=== PATIENT | male | born 1960 | race Caucasian/White ===

== ENCOUNTER 2016-06-25 13:11 | Emergency (ER) | payer OTHER ==
[2016-06-25] MEDS ORDERED: ORPHENADRINE CITRATE 30 MG/ML VIAL IM ONE (14:28)
[2016-06-25] MEDS ORDERED: MORPHINE SULFATE 4 MG/ML SYRG IM ONE (14:28)
[2016-06-25] MEDS ORDERED: MORPHINE SULFATE 4 MG/ML SYRG ONE (14:37)
[2016-06-25] MEDS ORDERED: ORPHENADRINE CITRATE 30 MG/ML VIAL ONE (14:37)
--- NOTE | 2016-06-25 15:28 | ERNOTE ---
Back Pain ER HPI Date of Service: 06/25/16 Presenting Symptoms: hx chronic back pain Time Seen by Provider: 06/25/16 14:20 Source: patient Exam Limitations: no limitations Immunizations: IMMUNIZATION HX Immunizations Up to Date Yes History of Influenza Vaccine No Hx Pneumococcal Vaccination No Allergies/Adverse Reactions: Allergies No Known Allergies Allergy (Unverified 04/08/15 09:21) Home Medications: HOME MEDICATIONS Aleve 04/08/15 [Last Taken Unknown] HYDROcodone/ACETAMINOPHEN [Hayes 5-325] 1 each PO Q8H PRN #12 tablet 06/25/16 [ Last Taken Unknown] Orphenadrine Citrate [Norflex] 100 mg PO Q12H PRN #12 tablet.sa 06/25/16 [Last Taken Unknown] Narrative: Patient presents with back pain. he relates he has been having off and on back pain since age 17. Had last MRI 1 year ago. Has had cortisone shots and has seen back surgeon in the past. Yesterday at work he threw his back out by report while lifting a box. No acute radicular pain. Pain low back both sides. He states this is exactly like what he has had before. Nothing different about it. No active radicular Sx. No midline pain. No acute N/T/W. No fever. No loss of bowel or bladder control. He states this is just like prior. Timing: Reports: constant Quality/Severity: Reports: other - pain can be severe with movement Location of pain: Reports: lower back, no radiation. Denies: radiating to rt thigh/leg, radiating to lf thigh/leg Activities at Onset: Reports: other - lifting box Recent Injury?: Reports: yes Possible Precipitating Factor: Reports: lifting Modifying Factors - (Improves): Reports: other - rest Modifying Factors - (Worsens): Reports: movement to right, movement to left, movement flexion. Denies: cough/deep breaths Associated Symptoms: Denies: fever/chills, constipation/incontinence, nausea/ vomiting, problems urinating, numbess/weakness in legs Prior Treament: Denies: recently seen Review of Systems - Review of Systems Constitutional: Absent: fever Respiratory: Present: no symptoms reported Cardiology: Present: no symptoms reported Gastrointestinal/Abdominal: Present: no symptoms reported Genitourinary: Present: no symptoms reported Neurological: Absent: weakness - Patient's Past Medical History Patient History - Medical: Chronic Pain, GERD Patient History - Cardiac/Respiratory: Hypertension Patient History - Cancer: No Hx of Cancer Patient History - Surgical Procedures: Appendectomy, Other Patient History - Other: None - Social History Living Situations: home Abuse History: No History of abuse Psych History: No pertinent hx Smoking Status: Never smoker Alcohol Use: occasionally Drug Use: none - Immunizations Immunizations Up to Date: Yes Hx Pneumococcal Vaccination: No History of Influenza Vaccine: No Physical Exam - Physical Exam General Appearance: Present: alert, no apparent distress Eye Exam: Normal inspection: bilateral, PERRL: bilateral Ears, Nose, Throat: Present: normal ENT inspection Neck: Present: normal inspection Respiratory: Present: no respiratory distress, normal breath sounds, no accessory muscle use, lungs clear Cardiovascular/Chest: Present: regular rate, rhythm, normal peripheral pulses Gastrointestinal/Abdominal: Present: normal bowel sounds, nontender, soft. Absent: tenderness Back Exam: Present: normal inspection, no vertebral tenderness, other - Bilateral low back muscular tenderness. Palpation causes significant pain and reporoduces his Sx. Clinically all Sx reproduced with palpation of the musculature.. Absent: no CVA tenderness Extremity Exam: Present: normal inspection, no edema Neurological Exam: Present: alert, normal mood/affect, no motor/sensory deficits , other - Patellar tendon reflexes equal and symmetric. Can lift both legs off the bed against gravity. Full dorsi and plantar flexion strength bilaterally of ankles. Gait stable but antalgic. No evidence of neuro deficit or cauda equina syndrome. Skin Exam: Absent: skin rash ED Progress - Vital Signs Patient's Vital Signs:: I have reviewed the patient's vital signs. Vital Signs: Vital Signs 06/25/16 14:09 Temperature 37.1 C Pulse Rate 56 L Respiratory 16 Rate Blood Pressure 147/95 O2 Sat by Pulse 97 Oximetry - Progress/Reassessment Chief Complaint: Back Pain Progress Note-Subjective: 06/25/16 15:27 I do not feel x-ray indicated. Hx of same in tony past. No suggestion of infectious process or neuro deficit. No evidence of caudaequina syndrome. He feels improved and wishes to go home. I discussed warning signs and reasons to return as well as the need for close f/u. Departure Clinical Impression: Low back pain - Departure Disposition: Home self-care Condition: Stable Instructions: Back Pain, Adult, [id number] Additional Instructions: Rest. Fluids. Follow-up monday for a re-check. Medications as directed. No driving with medications. Return here for fever, numbness, tingling, weakness, loss of bowel or bladder control or if your condition worsens or changes in any way. Referrals: Antonella Ontiveros MD [Primary Care Provider] - Prescriptions: HYDROcodone/ACETAMINOPHEN [Hayes 5-325] 1 each PO Q8H PRN #12 tablet PRN Reason: Pain Orphenadrine Citrate [Norflex] 100 mg PO Q12H PRN #12 tablet.sa PRN Reason: Pain
[2016-06-25 17:15] VITALS: BP 137/71
== END 2016-06-25 15:16 | disposition home or self-care (01) ==
LOC: ER 13:11
DX: M54.5 Low back pain (principal)